=== PATIENT | male | born 1955 | race Caucasian/White ===

== ENCOUNTER → 2016-12-20 | Outpatient (CLI) | payer OTHER ==
[~2016-12-20] MED LIST: CIALIS20 MG PO; LIPITOR10 MG PO; LOW DOSE ASPIRI81 M1 PO; MULTIVITAMINS; OMEPRAZOLE20 M1 PO
== END ==
LOC: CAT 08:10
DX: Z13.6 Encounter for screening for cardiovascular disorders (principal)